=== PATIENT | female | born 1985 | race Caucasian/White ===

== ENCOUNTER 2016-06-03 16:57 | Emergency (ER) | payer MEDICAID ==
[2016-06-03 17:09] VITALS: BP 148/96
--- NOTE | 2016-06-03 17:18 | ER Document Report ---
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 Tetanus is current. TRAVEL OUTSIDE OF THE [place] IN LAST 30 DAYS: No - Related Data Allergies/Adverse Reactions: Penicillins Allergy (Verified 06/03/16 17:15) Physical Exam - Vital signs Vitals: Temp Pulse Resp BP Pulse Ox 98.4 F 94 16 148/96 H 99 06/03/16 17:09 06/03/16 17:09 06/03/16 17:09 06/03/16 17:09 06/03/16 17:09 Course - Vital Signs Vital signs: Temp Pulse Resp BP Pulse Ox 98.4 F 94 16 148/96 H 99 06/03/16 17:09 06/03/16 17:09 06/03/16 17:09 06/03/16 17:09 06/03/16 17:09
[2016-06-03] MEDS ORDERED: LIDOCAINE 1% INJ-PF (10 MG/ML) 30 ML SDV INJ ONE (17:36)
[2016-06-03] MEDS ORDERED: CLINDAMYCIN 600 MG/D5W RTU 50 ML IV ONE (17:49)
[2016-06-03] MEDS ORDERED: ONDANSETRON HCL INJ/PF 4 MG/2 ML SDV IV ONE (17:51)
[2016-06-03] MEDS ORDERED: HYDROMORPHONE HCL INJ/PF 2 MG/ML AMPULE IV ONE (17:52)
[2016-06-03] MEDS ORDERED: LIDOCAINE 1%/EPINEPHRINE INJ 20 ML VIAL INJ ONE (17:53)
--- NOTE | 2016-06-03 18:36 | ER Document Report ---
ED Hand/Wrist Injury - General Chief Complaint: Laceration Stated Complaint: HAND LACERATION Mode of Arrival: Ambulatory Notes: Patient accidentally cut her left proximal hypo-thenar / wrist area with a very sharp jukebox operator this afternoon. She has a laceration there but no other injuries anywhere. Has no sensory or motor loss or deficits in the distal hand and fingers. No other injuries. Tetanus up-to-date. TRAVEL OUTSIDE OF THE [place] IN LAST 30 DAYS: No - Related Data Allergies/Adverse Reactions: Penicillins Allergy (Verified 06/03/16 17:15) Past Medical History - General Information source: Patient - Social History Smoking Status: Current Every Day Smoker Chew tobacco use (# tins/day): No Frequency of alcohol use: None Drug Abuse: None Family History: Reviewed & Not Pertinent Patient has suicidal ideation: No Patient has homicidal ideation: No Review of Systems - Review of Systems Constitutional: denies: Fever Cardiovascular: denies: Chest pain Physical Exam - Vital signs Vitals: Temp Pulse Resp BP Pulse Ox 98.4 F 94 16 148/96 H 99 06/03/16 17:09 06/03/16 17:09 06/03/16 17:09 06/03/16 17:09 06/03/16 17:09 - Notes Notes: PHYSICAL EXAMINATION: GENERAL: Well-appearing, in no acute distress. LUNGS: Breath sounds clear and equal bilaterally. HEART: Regular rate and rhythm without murmurs. ABDOMEN: Soft, nontender. No guarding or rebound. BACK: No tenderness throughout entire back. EXTREMITIES: Normal range of motion without pain. Very sharp clean 4 cm laceration of the left proximal hyperthenar region at the wrist. Laceration is just distal to the distal end of the ulna. No distal musculoskeletal or neurologic deficits. NEUROLOGICAL: Normal speech, normal gait. Normal sensory, motor, and reflex exams. Awake, alert, and oriented x3. Cranial nerves normal. Course - Vital Signs Vital signs: Temp Pulse Resp BP Pulse Ox 98.4 F 94 16 148/96 H 99 06/03/16 17:09 06/03/16 17:09 06/03/16 17:09 06/03/16 17:09 06/03/16 17:09 Procedures - Laceration/Wound Repair Left Lateral Wrist Wound length (cm): 4 Wound's Depth, Shape: Into muscle - Very small half a centimeter incursion into the surface of the muscle bundle. No functional impairment. Laceration pre-procedure: Shur-Clens applied Anesthetic type: 1% Lidocaine Volume Anesthetic (mLs): 3 Wound explored: Clean Irrigated w/ Saline (mLs): 200 Wound Repaired With: Sutures Suture Size/Type: 5:0 Number of Sutures: 5 Layer Closure?: No Post-procedure NV exam normal: Yes Complications: No Hands back picture: 1 - 4 cm laceration barely into the surface of the underlying muscle. Closed with 5-0 nylon 5. Discharge - Discharge Clinical Impression: Laceration of left hand Qualifiers: Encounter type: initial encounter Qualified Code(s): S61.412A - Laceration without foreign body of left hand, initial encounter Condition: Stable Disposition: HOME, SELF-CARE Additional Instructions: LACERATION CARE: Your laceration has been sutured to keep the skin edges aligned during healing. The time of suture removal depends on the nature and location of your cut. Please follow the care instructions the doctor has outlined for you and return for further care, according to the schedule you've been given. Keep the wound and dressing clean. Unless you were told otherwise, you may shower daily, blotting the wound dry with a clean, unused towel. At other times, If the dressing gets wet or blood soaked, remove it and blot the wound dry, then reapply a new dressing. Unless you were instructed otherwise, dressings should be changed at least daily. If any signs of infection occur (swelling, redness, drainage, increasing tenderness, red streaks, tender lumps in the armpit or groin above the laceration, or fever), see the doctor immediately. SOAP CLEANSING: Gently wash the wound daily using a mild soap (like Ivory, Phisoderm, Neutrogena). Use warm water, rubbing gently until all debris, ooze, and crusting have been washed from the wound. Allow to dry briefly (about 10 minutes) after cleaning. Repeat this cleansing at least three times a day for the first two days and then once or twice a day. ANTIBIOTIC OINTMENT PROTECTION: Your wounds are such that dressing them is not practical or optional. After cleansing, you should apply a thin coating of antibiotic ointment ( Bacitracin, not Neosporin) to the wounds at least three times daily. This lessens infection risk, and may decrease the amount of scarring. Use a q-tip or dull butter knife, not your finger, to apply this ointment. Any debris or ooze which builds up in the ointment should be gently rubbed off with a sterile gauze pad. Harder crusting may need to be gently scrubbed off with a clean wash cloth with soap and warm water, perhaps applying a warm, wet wash cloth to the wound for ten minutes first. Development of redness, severe itching, or blistering may mean allergy to the ointment. See the doctor. FOLLOW-UP CARE: Your sutures should be removed in 7 days. To facilitate a timely removal of your sutures, you may return to the Emergency Department at [facility]. You do not need to call for an appointment, but the best time to come in for suture removal is early in the morning. If you have been referred to another physician for follow-up care, call that physicians office for an appointment as you were instructed. If you experience a significant change in your laceration, or if you are concerned there may be an infection (swelling, redness, drainage, increasing tenderness, red streaks, tender lumps in the armpit or groin above the laceration, or fever) , return to the Emergency Department immediately re-evaluation.
== END 2016-06-03 18:45 | disposition home or self-care (01) ==
LOC: ER 16:57
DX: S61.412A Laceration without foreign body of left hand, initial encounter (principal); W45.8XXA Other foreign body or object entering through skin, initial encounter
CPT/HCPCS: 99282

== ENCOUNTER 2016-06-04 21:31 | Emergency (ER) | payer MEDICAID ==
[2016-06-04 23:12] VITALS: BP 121/63
--- NOTE | 2016-06-05 00:35 | ER Document Report ---
ED General - General Chief Complaint: Abdominal Pain Stated Complaint: LOWER ABDOMINAL PAIN Notes: Patient is 30-year-old female who presents with complaints of pain in her abdomen rates back into her back. She says that pain is lower abdomen. She says that she had a previous tubal ligation. Her last initial period was in April. She says her menstrual. Usually occur on the fourth of every month. It's very typical for her not to have dementia.. She checked a test just over a month ago and was negative. She's not checked once since then. She's had no vaginal bleeding. No abnormal discharge. No fevers. No dysuria. No other complaints at this time. TRAVEL OUTSIDE OF THE [place] IN LAST 30 DAYS: No - Related Data Allergies/Adverse Reactions: Penicillins Allergy (Verified 06/04/16 23:11) Past Medical History - Social History Smoking Status: Current Every Day Smoker Chew tobacco use (# tins/day): No Frequency of alcohol use: None Drug Abuse: None Family History: Reviewed & Not Pertinent Patient has suicidal ideation: No Patient has homicidal ideation: No Renal/ Medical History: Denies: Hx Peritoneal Dialysis Review of Systems - Review of Systems Notes: My Normal Review Basic REVIEW OF SYSTEMS: CONSTITUTIONAL : Denies fever, chills, or sweats. Denies recent illness. RESPIRATORY: Denies cough, cold, or chest congestion. Denies shortness of breath, difficulty breathing, or wheezing. GASTROINTESTINAL: Some lower abdominal pain. Denies nausea, vomiting, or diarrhea. Denies constipation. Last BM: GENITOURINARY: Denies difficulty urinating, painful urination, burning, frequency, or blood in urine. FEMALE GENITOURINARY: Denies vaginal bleeding, abnormal or irregular periods. LMP: 2 months ago MUSCULOSKELETAL: Some back pain SKIN: Denies rash or skin lesions. NEUROLOGICAL: Denies altered mental status or loss of consciousness. Denies headache. Denies weakness or paralysis or loss of use of either side. Denies problems with gait or speech. Denies sensory or motor loss. ALL OTHER SYSTEMS REVIEWED AND NEGATIVE. Physical Exam - Vital signs Vitals: Temp Pulse Resp BP Pulse Ox 98.0 F 83 17 121/63 99 06/04/16 23:05 06/04/16 23:05 06/04/16 23:05 06/04/16 23:06/04/16 23:05 - Notes Notes: General Appearance: Well nourished, alert, cooperative, no acute distress, no obvious discomfort. Well-appearing Vitals: reviewed, See vital signs table. Head: no swelling or tenderness to the head Eyes: PERRL, EOMI, Conjuctiva clear Mouth: No decreasd moisture Lungs: No wheezing, No rales, No rhonci, No accessory muscle use, good air exchange bilaterally. Heart: Normal rate, Regular rythm, No murmur, no rub Abdomen: Normal BS, soft, No rigidity, No reproducible abdominal tenderness to palpation, No guarding, no rebound, no abdominal masses, no organomegaly Extremities: strength 5/5 in all extremities, good pulses in all extremities, no swelling or tenderness in the extremities, no edema. Skin: warm, dry, appropriate color, no rash Neuro: speech clear, oriented x 3, normal affect, responds appropriately to questions. Course - Vital Signs Vital signs: Temp Pulse Resp BP Pulse Ox 98.0 F 83 17 121/63 99 06/04/16 23:05 06/04/16 23:05 06/04/16 23:05 06/04/16 23:05 06/04/16 23:05 - Laboratory Result Diagrams: 06/05/16 00:43 06/05/16 00:43 Laboratory results interpreted by me: 06/05/16 00:43 BUN 22 H - Transfer of Care Notes: 06/05/16 01:50 Patient's blood work shows that she is not . Rest of her blood work looks normal. She has no leukocytosis. Abdomen is minimally tender to palpation. Her urine is clear. She looks very well. I informed her that since her menstrual periods have been delayed that her next menstrual period may be heavy more painful. Encourage return to ER immediately if she has severe bleeding or lightheadedness or dizziness or severe pain. Encourage return to ER immediately immediately if she has fevers or worsening pain. I informed her that if she continues of irregular periods she should follow-up with brick pitcher. I did give her the number to the on-call brick pitcher. Dictation of this chart was performed using voice recognition software; therefore, there may be some unintended grammatical errors. Discharge - Discharge Clinical Impression: Abdominal pain Qualifiers: Abdominal location: unspecified location Qualified Code(s): R10.9 - Unspecified abdominal pain Condition: Good Disposition: HOME, SELF-CARE Additional Instructions: Please return to the ER if you have heavy bleeding causing dizziness, severe pain, fevers, or feel unwell. If you continue to have irregular periods, please follow-up with the brick pitcher. I will place the name and phone number to the brick pitcher credit professional in case you do not have one to follow-up with. Forms: Return to Work Referrals: SHALONDA PRIDE MD [ACTIVE STAFF] - Follow up in 3-5 days
[2016-06-05 01:09] LABS: ABSOLUTE BASOPHILS # (AUTO) 0.1 10^3/uL (0.0-0.2); ABSOLUTE EOSINOPHILS # (AUTO) 0.2 10^3/uL (0.0-0.6); ABSOLUTE LYMPHOCYTES (AUTO) 3.7 10^3/uL (0.5-4.7); ABSOLUTE MONOCYTES (AUTO) 0.8 10^3/uL (0.1-1.4); ABSOLUTE NEUT (AUTO) 3.9 10^3/uL (1.7-8.2); BASOPHILS % (AUTO) 0.8 % (0-2); EOSINOPHILS % (AUTO) 2.4 % (0-6); HEMATOCRIT 38.2 % (36.0-47.0); HEMOGLOBIN 12.5 g/dL (12.0-15.5); HGB HCT DIFFERENCE -0.7; LYMPHOCYTES % (AUTO) 42.7 % (13-45); MEAN CORPUSCULAR HEMOGLOBIN 28.4 pg (27.0-33.4); MEAN CORPUSCULAR HGB CONC 32.7 g/dL (32.0-36.0); MEAN CORPUSCULAR VOLUME 87 fl (80-97); RED BLOOD COUNT 4.39 10^6/uL (3.72-5.28); RED CELL DISTRIBUTION WIDTH 13.5 % (11.5-14.0); SEGMENTED NEUTROPHILS % (AUTO) 45.1 % (42-78); WHITE BLOOD COUNT 8.7 10^3/uL (4.0-10.5)
[2016-06-05 01:18] LABS: AMORPHOUS SEDIMENT,URINE TRACE /HPF; BILIRUBIN,URINE NEGATIVE (NEGATIVE); GLUCOSE, URINE NEGATIVE (NEGATIVE); KETONES,URINE NEGATIVE (NEGATIVE); LEUKOCYTE ESTERASE,URINE NEGATIVE (NEGATIVE); NITRITE,URINE NEGATIVE (NEGATIVE); PROTEIN,URINE NEGATIVE (NEGATIVE); URINE SPECIFIC GRAVITY 1.021; UROBILINOGEN,URINE NEGATIVE mg/dL (<2.0)
[2016-06-05 01:19] LABS: APPEARANCE,URINE SLIGHTLY-CLOUDY
[2016-06-05 01:25] LABS: ALANINE AMINOTRANSFERASE 22 U/L (9-52); ALBUMIN 4.6 g/dL (3.5-5.0); ALKALINE PHOSPHATASE 65 U/L (38-126); ANION GAP 12 (5-19); ASPARTATE AMINO TRANSFERASE 15 U/L (14-36); BILIRUBIN,TOTAL 0.4 mg/dL (0.2-1.3); BLOOD UREA NITROGEN 22 mg/dL (7-20); CALCIUM 9.9 mg/dL (8.4-10.2); CARBON DIOXIDE 25 mmol/L (22-30); CHLORIDE 104 mmol/L (98-107); CREATININE RESULT 0.66 mg/dL (0.52-1.25); GLUCOSE 87 mg/dL (75-110); POTASSIUM 4.3 mmol/L (3.6-5.0); SODIUM 140.9 mmol/L (137-145); TOTAL PROTEIN 7.3 g/dL (6.3-8.2)
== END 2016-06-05 02:25 | disposition home or self-care (01) ==
LOC: ER 21:31
DX: R10.30 Lower abdominal pain, unspecified (principal); F17.200 Nicotine dependence, unspecified, uncomplicated; M54.9 Dorsalgia, unspecified; Z98.51 Tubal ligation status
CPT/HCPCS: 36415; 80053; 81001; 84703; 85025; 99284